=== PATIENT | male | born 1990 ===

== ENCOUNTER 2018-09-11 11:25 | Emergency (ER) | payer BC ==
[2018-09-11 11:35] VITALS: BP 124/77; PULSE 84; RESP 20; TEMP 98.5; O2SAT 98
[2018-09-11] MEDS ORDERED: Lidocaine 5% Patch TD STA (11:55)
[2018-09-11] MEDS ORDERED: Lidocaine 5% Patch TD ONE (11:59)
--- NOTE | 2018-09-11 12:00 | C.PDOC ---
History Of Present Illness 28 y/o healthy male pt presents to the ER c/o sharp lower back pain x1 day. Pt notes back pain is better when sitting, worse when moving. He reports he tried tylenol with no relief. Pt denies hx of heavy lifting, back trauma, weakness in LE, fever, chills or bladder dysfunction. Time Seen by Provider: 09/11/18 11:44 Chief Complaint (Nursing): Back Pain History Per: Patient History/Exam Limitations: no limitations Onset/Duration Of Symptoms: Days (x1) Current Symptoms Are (Timing): Still Present Quality Of Discomfort: Sharp Severity: Moderate Previous Symptoms: Back Pain Past Medical History Reviewed: Historical Data, Nursing Documentation, Vital Signs Vital Signs: Last Vital Signs Temp 98.5 F 09/11/18 11:27 Pulse 84 09/11/18 11:27 Resp 20 09/11/18 11:27 BP 124/77 09/11/18 11:27 Pulse Ox 98 09/11/18 11:27 Family History: States: No Known Family Hx - Social History Hx Alcohol Use: No Hx Substance Use: No - Immunization History Hx Tetanus Toxoid Vaccination: No Hx Influenza Vaccination: Yes Hx Pneumococcal Vaccination: No Review Of Systems Constitutional: Negative for: Fever, Chills, Other (hx of heavy lifting ) Genitourinary: Negative for: Dysuria, Frequency, Incontinence Musculoskeletal: Positive for: Back Pain (no back trauma ) Neurological: Negative for: Weakness (in b/l LE ) Physical Exam - Physical Exam Appears: Non-toxic, No Acute Distress, Other (healthy ) Skin: Warm, Dry Gastrointestinal/Abdominal: Soft, No Tenderness Back: Paraspinal Tenderness (b/l lumbar; sacral) Extremity: Normal ROM (x4) Neurological/Psych: Oriented x3, Normal Speech, Normal Motor, Normal Sensation ED Course And Treatment O2 Sat by Pulse Oximetry: 98 (RA) Pulse Ox Interpretation: Normal Medical Decision Making Medical Decision Making: Impression: b/l lower back pain Plans: -- lidocaine -- toradol Reassess: On reassessment, patient is resting comfortably, with improvement of back pain. Patient remains afebrile, with no bony tenderness, extremity numbness or weakness, or abdominal pain. Patient is ambulatory in the emergency department with no signs of discomfort. Patient was advised to follow up with physician/clinic in 1-2 days Disposition Counseled Patient/Family Regarding: Diagnosis, Need For Followup, Rx Given - Disposition Disposition: HOME/ ROUTINE Disposition Time: 12:12 Condition: IMPROVED Additional Instructions: Take patch off back in 12 hours. Take naproxen by mouth every 12 hours (with food) for pain if needed. Avoid heavy lifting. Warm or cold compresses to painful area. Follow up with your doctor in a few days. 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 - Scribe Statement The provider has reviewed the documentation as recorded by the Kareem Michelle Do All medical record entries made by the Scribe were at my direction and personally dictated by me. I have reviewed the chart and agree that the record accurately reflects my personal performance of the history, physical exam, medical decision making, and the department course for this patient. I have also personally directed, reviewed, and agree with the discharge instructions and disposition.
== END 2018-09-11 12:29 | disposition home or self-care (01) ==
LOC: C.ER 11:25
DX: S39.012A Strain of muscle, fascia and tendon of lower back, initial encounter (principal); X58.XXXA Exposure to other specified factors, initial encounter
CPT/HCPCS: 96372; 99283; J1885